=== PATIENT | male | born 1970 | race Caucasian/White ===

== ENCOUNTER 2018-01-31 19:30 | Emergency (ER) | payer OTHER ==
[~2018-01-31] VITALS: Ht 165.1 cm; Wt 88.5 kg
[~2018-01-31 19:30] MED LIST: LEVOTHYROXINE25 MCG PO; LISINOPRIL-HCT1 EACH PO; OMEPRAZOLE40 MG PO; SONATA10 MG PO; TYLENOL # 31 EA PO; TYLENOL WITH C1 EACH PO; WELLBUTRIN XL300 MG PO
[2018-01-31] MEDS ORDERED: SODIUM CHLORIDE 0.9% 1000ML 1,000 ML IV STA (20:20)
[2018-01-31] MEDS ORDERED: ONDANSETRON HCL INJ 2 MG/ML VIAL IV ONE (20:30)
[2018-01-31 20:40] LABS: BASOPHILS # (AUTO) 0.1 (0.0-0.1); BASOPHILS % 0.4 % (0.0-1.0); EOSINOPHILS # (AUTO) 0.1 (0.0-0.4); EOSINOPHILS % 0.4 % (0.0-6.0); HEMATOCRIT 48.1 % (38.2-49.6); HEMOGLOBIN 16.5 g/dL (14.0-18.0); LYMPHOCYTES # (AUTO) 1.2 (1.0-3.2); LYMPHOCYTES % 7.6 % (18.0-39.1); MEAN CORPUSCULAR HGB CONC 34.3 g/dL (31-35); MEAN CORPUSCULAR VOLUME 93.4 fL (81-99); MONOCYTES # (AUTO) 0.9 (0.2-0.8); MONOCYTES % 5.5 % (4.4-11.3); NEUTROPHILS # (AUTO) 13.4 (2.1-6.9); NEUTROPHILS % 85.4 % (38.7-80.0); PLATELET COUNT 317 x10e3/uL (140-360); RED BLOOD COUNT 5.15 x10e6/uL (4.3-5.7)
[2018-01-31] MEDS ORDERED: FAMOTIDINE 20 MG/2 ML VIAL IV ONE (20:45)
[2018-01-31 21:01] LABS: ALANINE AMINOTRANSFERASE 137 IU/L (0-55); ALBUMIN 4.7 g/dL (3.5-5.0); ALBUMIN/GLOBULIN RATIO 1.4 (0.8-2.0); ALKALINE PHOSPHATASE 88 IU/L (40-150); AMYLASE 83 U/L (25-125); ANION GAP 15.1 mmol/L (8-16); BLOOD UREA NITROGEN 12 mg/dL (7-26); BUN/CREATININE RATIO 14 (6-25); CALCIUM 10.7 mg/dL (8.4-10.2); CARBON DIOXIDE 26 mmol/L (22-29); CHLORIDE 100 mmol/L (98-107); CREATININE, SERUM 0.85 mg/dL (0.72-1.25); EST GLOMERULAR FILTRATION RATE > 60 ML/MIN (60-); GLUCOSE 108 mg/dL (74-118); LIPASE 35 U/L (8-78); MAGNESIUM 2.1 MG/DL (1.3-2.1); POTASSIUM 4.1 mmol/L (3.5-5.1); SODIUM 137 mmol/L (136-145)
[2018-01-31] MEDS ORDERED: IOPAMIDOL 370 MG/ML 200 ML INFUS..BTL INJ ONE (21:05)
[2018-01-31] MEDS ORDERED: SODIUM CHLORIDE 0.9% 50ML 50 ML ONE (21:05)
[2018-01-31 21:12] LABS: CLARITY,URINE CLEAR (CLEAR); COLOR,URINE YELLOW (YELLOW)
[2018-01-31 21:13] LABS: BILIRUBIN,URINE NEGATIVE (NEGATIVE); KETONES,URINE NEGATIVE (NEGATIVE); LEUKOCYTE ESTERASE ,URINE NEGATIVE (NEGATIVE); NITRITE,URINE NEGATIVE (NEGATIVE); PROTEIN,URINE DIPSTICK NEGATIVE (NEGATIVE); URINE UROBILINOGEN 0.2 mg/dL (0.2 - 1)
[2018-01-31 21:35] LABS: RBC,URINE 0-5 /HPF (0-5); WBC,URINE (MAN) 0-5 /HPF (0-5)
--- NOTE | 2018-01-31 22:46 | Diagnostic Imaging Report ---
EXAM: CT ABDOMEN/PELVIS W DATE: 01/31/2018 8:23 PM INDICATION: \S\look for cholecystitis, pancreatitis, hernia \S\Y COMPARISON: None TECHNIQUE: The abdomen and pelvis were scanned using a multidetector helical scanner. Coronal and sagittal reformations were obtained. CT low dose techniques were utilized, as applicable. Note that technical issues resulted in a delay in interpretation. IV Contrast: 100 ml Isovue 300/370 FINDINGS: LOWER THORAX: No consolidations LIVER/BILIARY: Scattered subcentimeter too small to characterize liver hypodensities, though likely benign. No ductal dilatation. GALLBLADDER: Unremarkable SPLEEN: Unremarkable PANCREAS: Unremarkable ADRENALS: No nodules KIDNEYS: Several too small to characterize renal hypodensities. No hydronephrosis. GI TRACT: No wall thickening or evidence of obstruction. Diverticulosis. Appendix is not seen. VESSELS: Unremarkable PERITONEUM/RETROPERITONEUM: No free air or fluid LYMPH NODES: No lymphadenopathy REPRODUCTIVE ORGANS/BLADDER: Unremarkable SOFT TISSUES: Unremarkable BONES: Likely posttraumatic change of the right iliac wing. IMPRESSION: No acute abnormality in the abdomen or pelvis. Diverticulosis without diverticulitis. Signed by: Dr Simona Griffin MD on 01/31/2018 10:42 PM
--- NOTE | 2018-01-31 22:48 | Diagnostic Imaging Report ---
EXAM: US GALLBLADDER DATE: 01/31/2018 8:20 PM INDICATION: Abdominal pain, COMPARISON: None TECHNIQUE: Transverse and longitudinal mott scale and color doppler sonographic images of the upper abdomen were obtained. FINDINGS: LIVER 13.7 cm in the right midclavicular line. Slightly increased echogenicity, normal contour, no masses. GALLBLADDER Mild sludge without wall-thickening or pericholecystic fluid. Negative sonographic Jean Baptiste's sign. BILE DUCTS No intra nor extra-hepatic biliary dilation. Common bile duct measures 0.4 cm PANCREAS: Not well-visualized RIGHT KIDNEY: 10.5 cm Echogenicity: Normal Collecting System: No hydronephrosis Stones: None Cyst/Mass: None VESSELS: Aorta: Not well-visualized due to overlying bowel gas Inferior Vena Cava: Not well-visualized due to overlying bowel gas Main Portal Vein: hepatopetal flow. FREE FLUID: None IMPRESSION: 1. Gallbladder sludge without evidence of acute cholecystitis. 2. Possible hepatic steatosis. Signed by: Dr Simona Griffin MD on 01/31/2018 10:44 PM
[2018-01-31 23:27] VITALS: BP 132/69
== END 2018-01-31 23:43 | disposition home or self-care (01) ==
LOC: ER 19:30
DX: R10.11 Right upper quadrant pain (principal); R11.0 Nausea; K29.00 Acute gastritis without bleeding; K80.50 Calculus of bile duct without cholangitis or cholecystitis without obstruction
CPT/HCPCS: 36415; 74177; 76705; 80053; 81001; 82150; 83690; 83735; 85025; 99284; J2405; J7030; Q9967

== ENCOUNTER → 2018-03-07 | Day surgery (SDC) | payer OTHER ==
[2018-02-28 14:15] LABS: BASOPHILS # (AUTO) 0.1 (0.0-0.1); BASOPHILS % 0.9 % (0.0-1.0); EOSINOPHILS # (AUTO) 0.3 (0.0-0.4); EOSINOPHILS % 2.6 % (0.0-6.0); HEMATOCRIT 46.1 % (38.2-49.6); HEMOGLOBIN 15.9 g/dL (14.0-18.0); LYMPHOCYTES # (AUTO) 1.8 (1.0-3.2); LYMPHOCYTES % 18.5 % (18.0-39.1); MEAN CORPUSCULAR HEMOGLOBIN 32.6 pg (28-32); MEAN CORPUSCULAR HGB CONC 34.5 g/dL (31-35); MEAN CORPUSCULAR VOLUME 94.5 fL (81-99); MONOCYTES # (AUTO) 1.1 (0.2-0.8); MONOCYTES % 11.2 % (4.4-11.3); NEUTROPHILS # (AUTO) 6.5 (2.1-6.9); NEUTROPHILS % 66.2 % (38.7-80.0); PLATELET COUNT 293 x10e3/uL (140-360); RED BLOOD COUNT 4.88 x10e6/uL (4.3-5.7); RED CELL DISTRIBUTION WIDTH 12.2 % (11.7-14.4)
[2018-02-28 14:16] LABS: CLARITY,URINE CLEAR (CLEAR); COLOR,URINE YELLOW (YELLOW)
[2018-02-28 14:17] LABS: BILIRUBIN,URINE NEGATIVE (NEGATIVE); KETONES,URINE NEGATIVE (NEGATIVE); LEUKOCYTE ESTERASE ,URINE NEGATIVE (NEGATIVE); NITRITE,URINE NEGATIVE (NEGATIVE); PROTEIN,URINE DIPSTICK NEGATIVE (NEGATIVE); URINE UROBILINOGEN 0.2 mg/dL (0.2 - 1)
[2018-02-28 14:32] LABS: ANION GAP 13.1 mmol/L (8-16); BLOOD UREA NITROGEN 24 mg/dL (7-26); BUN/CREATININE RATIO 27 (6-25); CARBON DIOXIDE 22 mmol/L (22-29); CHLORIDE 104 mmol/L (98-107); EST GLOMERULAR FILTRATION RATE > 60 ML/MIN (60-); GLUCOSE 99 mg/dL (74-118); POTASSIUM 4.1 mmol/L (3.5-5.1); SODIUM 135 mmol/L (136-145)
[~2018-03-07] MED LIST changes: +ACETAMINOPHEN 1000 MG/100 ML IV ONE; +ADVIL200 MG; +BUPIVACAINE 0.25%/EPI 30ML SDV INJ ONE; +DEXAMETHASONE SOD PHOS INJ 4 MG/ML VIAL ONE; +FENTANYL CITRATE/PF 100MCG/2 ML INJ ONE; +GLYCOPYRROLATE INJ 1MG/ 5 ML SYR ONE; +HYDROCODONE/APAP 7.5MG-325MG 1 EA TAB ONE; +HYDROMORPHONE 2MG/ML 2 MG/ML ML ONE; +LIDOCAINE HCL 2% LOCAL INJ 5 ML SDV VIAL INJ ONE; +METOCLOPRAMIDE HCL 10 MG/2ML VIAL ONE; +MIDAZOLAM HCL 2 MG/2 ML VIAL ONE; +NASAL SPRAY30 M1; +NEOSTIGMINE 5 MG/5ML SYR ONE; +ONDANSETRON HCL INJ 2 MG/ML VIAL ONE; +PROPOFOL IV EMULSION 10 MG/ML 20 ML VIAL ONE; +ROCURONIUM BROMIDE 10 MG/ML 5ML VIAL ONE; +SEVOFLURANE INHAL SOLN 250 ML PEN BTL ONE; +VOLTAREN-XR100 MG
--- NOTE | 2018-03-07 08:31 | Diagnostic Imaging Report ---
PROCEDURE: Frontal and lateral views of the chest. COMPARISON: None. INDICATIONS: PRE OPERATIVE CHEST X-RAY FOR LAP JOHN FINDINGS: Lines/tubes: None. Lungs: The lungs are well inflated and clear. There is no evidence of pneumonia or pulmonary edema. Pleura: There is no pleural effusion or pneumothorax. Heart and mediastinum: The cardiomediastinal silhouette is unremarkable. Bones: No acute bony abnormality. IMPRESSION: No acute radiographic abnormality. Dictated by: CONNOR MEDEIROS M.D. on 03/07/2018 at 8:39 Electronically approved by: CONNOR MEDEIROS M.D. on 03/07/2018 at 8:39
[2018-03-07 12:45] VITALS: BP 141/87
--- NOTE | 2018-03-07 13:24 | Operative Report ---
DATE OF PROCEDURE: March 07, 2018 PREOPERATIVE DIAGNOSIS: Cholecystitis. POSTOPERATIVE DIAGNOSIS: Cholecystitis. OPERATION PERFORMED: Laparoscopic cholecystectomy. PEDIATRIC SPEECH THERAPIST: SAMIRA Diaz ANESTHESIA: General. COMPLICATIONS: None. ESTIMATED BLOOD LOSS: Minimal. DESCRIPTION OF PROCEDURE: With the patient lying in bed in the supine position, under good general endotracheal anesthesia, the abdomen was prepped with Betadine solution and draped in the usual manner. A Veress needle was introduced into the umbilicus, and pneumoperitoneum was established without any difficulty. An 11-mm trocar was placed into the umbilicus, and a 10-mm video laparoscope was placed into the intraabdominal cavity. Under direct vision, three 5-mm trocars were placed in the right subcostal region. Video laparoscopy at this point revealed a gallbladder that had some changes consistent with cholesterolosis. The rest of the abdominal exploration was otherwise within normal limits. The peritoneum overlying the neck of the gallbladder was then opened, and the cystic duct was identified. Cystic duct was followed to its junction with the common duct. Cystic duct was then circumferentially dissected away from common duct, doubly clipped and divided. The cystic artery was similarly doubly clipped and divided. The gallbladder was then slowly and carefully taken off the liver bed using the cautery scissors, and perfect hemostasis was ascertained. The gallbladder was grasped through the umbilical port and removed without any difficulty. Video laparoscopy was then again carried out. Liver bed was found to perfectly dry. All of the excess fluid was aspirated. The pneumoperitoneum was evacuated, and all the trocars were removed under direct vision. The midline fascia at the umbilicus was then closed with a lcxude-dw-alyqg of #0 Vicryl. All layers were infiltrated on the way out with solution of 1/4 percent Marcaine. Subcutaneous tissue was approximated with 3-0 Vicryl, and the skin was closed with subcuticular 5-0 Vicryl. Benzoin, Steri-Strips and Band-Aids were applied. The sponge, lap and needle count was correct. Patient tolerated the procedure well and returned to the recovery room in stable condition. Job#: [id number]
--- OUTSIDE RECORDS SUMMARY | 2018-03-11 13:16 | XMS REPORT | Summary of Care ---
Author Author [facility] Organization [facility] Address Unknown Phone Unavailable Encounter ROBERT Aguilar(HERNAN) [id number] Date(s): 04/06/16 - 04/06/16 [facility] [address] [place] [address]- Discharge Disposition: Home or Self Care Attending Physician: Linh Maldonado MD Referring Physician: Linh Maldonado MD Vital Signs Most recent to 1 2 oldest [Reference Range]: Height 165.1 cm 165.1 cm (04/06/16 11:08 AM) (04/04/16 1:53 PM) Temperature Oral 98.0 DegF [96.4-99.1 DegF] (04/06/16 11:08 AM) Blood Pressure 127/78 mmHg 122/81 mmHg [90-140/60-90 mmHg] (04/06/16 3:30 PM) (04/06/16 11:08 AM) Peripheral Pulse 58 bpm Rate [60-100 bpm] *LOW* (04/06/16 11:08 AM) Weight 88.636 kg 86.364 kg (04/06/16 11:08 AM) (04/04/16 1:53 PM) Body Mass Index 32.52 m2 31.68 m2 (04/06/16 11:08 AM) (04/04/16 1:53 PM) Problem List Condition Effective Dates Status Health Status Informant Benign Active hypertension(Confirm ed) Acid Active reflux(Confirmed) Hypothyroid(Confirme Active d) Allergies, Adverse Reactions, Alerts Substance Reaction Severity Status Flexeril Active Medications Advil 200 mg oral tablet 400 mg=2 tab, PO, Q4H, PRN Pain, # 120 tab, 0 Refill(s) Start Date: 04/04/16 Stop Date: 04/14/16 Status: Ordered hydrochlorothiazide-lisinopril 12.5 mg-20 mg oral tablet 1 tab, PO, Daily, # 30 tab, 0 Refill(s) Start Date: 04/04/16 Status: Ordered levothyroxine 50 mcg (0.05 mg) oral tablet 50 microgram=1 tab, PO, Daily, # 30 tab, 0 Refill(s) Start Date: 04/04/16 Status: Ordered omeprazole 40 mg oral delayed release capsule 40 mg=1 cap, PO, Daily, # 30 cap, 0 Refill(s) Start Date: 04/04/16 Status: Ordered Sonata 10 mg oral capsule 10 mg=1 cap, PO, Bedtime, PRN for sleep, # 30 cap, 0 Refill(s) Start Date: 04/04/16 Stop Date: 05/04/16 Status: Ordered Unknown Home Medication 1 tab, PO, PRN, Refill(s) 0 Start Date: 04/04/16 Status: Ordered Vitamin D3 oral tablet 6 tabs, PO, Daily, # 30 tab, 0 Refill(s) Start Date: 04/04/16 Status: Ordered Wellbutrin XL 300 mg/24 hours oral tablet, extended release 300 mg=1 tab, PO, Daily, # 30 tab, 0 Refill(s) Start Date: 04/04/16 Status: Ordered Results CHEM PANEL Most recent to 1 oldest [Reference Range]: eGFR 103 mL/min/1.73m2 1 *NA* (04/06/16 2:59 PM) POC Creatinine 0.9 mg/dL [0.5-1.4 mg/dL] (04/06/16 2:59 PM) 1Result Comment: The eGFR is calculated using the CKD-EPI formula. In most young, healthy individuals the eGFR will be >90 mL/min/1.73m2. The eGFR declines with age. An eGFR of 60-89 may be normal in some populations, particularly the elderly, for whom the CKD-EPI formula has not been extensively validated. Use of the eGFR is not recommended in the following populations: Individuals with unstable creatinine concentrations, including patients and those with serious co-morbid conditions. Patients with extremes in muscle mass or diet. The data above are obtained from the National Kidney Disease Education Program ( NKDEP) which additionally recommends that when the eGFR is used in patients with extremes of body mass index for purposes of drug dosing, the eGFR should be mul tiplied by the estimated BMI. Immunizations No data available for this section Procedures Procedure Date Related Diagnosis Body Site Colonoscopy Esophagoduodenostomy Knee joint operation Rotator cuff repair Shoulder joint operations Social History Social History Type Response Alcohol Past Smoking Status Former smoker; Type: Cigarettes; Exposure to Tobacco Smoke None; Cigarette Smoking Last 365 Days No; Reg Smoking Cessation Counseling No Assessment and Plan No data available for this section
--- OUTSIDE RECORDS SUMMARY | 2018-03-11 13:16 | XMS REPORT | Summary of Care ---
Author Author [facility] Organization [facility] Address Unknown Phone Unavailable Encounter HQ Encntr_alias(FIN) [id number] Date(s): 08/13/16 - 09/11/16 [facility] Discharge Disposition: Home or Self Care Attending Physician: Cali Brizuela MD Vital Signs No data available for this section Problem List Condition Effective Dates Status Health Status Informant Benign Active hypertension(Confirm ed) Acid Active reflux(Confirmed) Hypothyroid(Confirme Active d) Allergies, Adverse Reactions, Alerts Substance Reaction Severity Status Flexeril Active Medications No data available for this section Results No data available for this section Immunizations No data available for this section [...]
--- OUTSIDE RECORDS SUMMARY | 2018-03-11 13:16 | XMS REPORT | Summary of Care ---
Author Author [facility] Organization [facility] Address Unknown Phone Unavailable Encounter HQ Encntr_alias(FIN) [id number] Date(s): 08/05/15 - 09/03/15 [facility] Discharge Disposition: Home Attending Physician: Cali Brizuela MD Vital Signs No data available for this section Problem List No data available for this section Allergies, Adverse Reactions, Alerts No data available for this section Medications No data available for this section Results No data available for this section Immunizations No data available for this section Procedures No data available for this section Social History No data available for this section Assessment and Plan No data available for this section
--- OUTSIDE RECORDS SUMMARY | 2018-03-11 13:16 | XMS REPORT ---
Author Author [facility] Address Unknown Phone Unavailable Care Team Providers Care Clean Up Person Name Role Phone Zak BALLESTEROS Unavailable Unavailable Shelli MACK Unavailable Unavailable Problems This patient has no known problems. Allergies, Adverse Reactions, Alerts This patient has no known allergies or adverse reactions. Medications This patient has no known medications. Results Test Description Test Time Test Comments Text Results Atomic Results Result Comments CHEST 2 VIEWS 2018-03-07 08:39:[address] [address] Patient Name: GEORGI RAMIREZ MR #: [id number] : 1970 Age/Sex: 47/M Req #: [id number] Adm Physician: Ordered by: LATOYA BALLESTEROS MD Report #: [id number] Location: OR Room/Bed: Procedure: [id number] DX/CHEST 2 VIEWS Exam Date: 03/07/18 Exam Time: 0800 REPORT STATUS: Signed PROCEDURE: Frontal and lateral views of the chest. COMPARISON: None. INDICATIONS: PRE OPERATIVE CHEST X-RAY FOR LAP JOHN FINDINGS: Lines/tubes: None. Lungs: The lungs are well inflated and clear. There is no evidence of pneumonia or pulmonary edema. Pleura: There is no pleural effusion or pneumothorax. Heart and mediastinum: The cardiomediastinal silhouette is unremarkable. Bones: No acute bony abnormality. IMPRESSION: No acute radiographic abnormality. Dictated by: CONNOR MEDEIROS M.D. on 03/07/2018 at 8:39 Electronically approved by: CONNOR MEDEIROS M.D. on 03/07/2018 at 8:39 Dictated By: CONNOR MEDEIROS MD 8 Transcribed By: KARINA on 03/07/18838 COPY TO: LATOYA BALLESTEROS MD US GALLBLADDER 2018-01-31 22:42:00 [place] [address] Patient Name: GEORGI RAMIREZ MR #: [id number] : 1970 Age/Sex: 47/M Req #: [id number] Adm Physician: Ordered by: VEGA MACK MD Report #: [id number] Location: ER Room/Bed: Procedure: [id number] US/US GALLBLADDER Exam Date: Exam Time: REPORT STATUS: Signed EXAM: US GALLBLADDER DATE: 01/31/2018 8:20 PM INDICATION: Abdominal pain, COMPARISON: None TECHNIQUE: Transverse and longitudinal mott scale and color doppler sonographic images of the upper abdomen were obtained. FINDINGS: LIVER 13.7 cm in the right midclavicular line. Slightly increased echogenicity, normal contour, no masses. GALLBLADDER Mild sludge without wall-thickening or pericholecystic fluid. Negative sonographic Jean Baptiste's sign. BILE DUCTS No intra nor extra-hepatic biliary dilation. Common bile duct measures 0.4 cm PANCREAS: Not well-visualized RIGHT KIDNEY: 10.5 cm Echogenicity: Normal Collecting System: No hydronephrosis Stones: None Cyst/Mass: None VESSELS: Aorta: Not well-visualized due to overlying bowel gas Inferior Vena Cava: Not well-visualized due to overlying bowel gas Main Portal Vein: hepatopetal flow. FREE FLUID: None IMPRESSION: 1. Gallbladder sludge without evidence of acute cholecystitis. 2. Possible hepatic steatosis. Signed by: Dr Evan Griffin MD on 01/31/2018 10:44 PM Dictated By: EVAN GRIFFIN MD 43 Transcribed By: POLI on 01/31/182243 COPY TO: VEGA MACK MD CT ABDOMEN/PELVIS W 2018-01-31 22:02:00 [place] [address] Patient Name: GEORGI RAMIREZ MR #: [id number] : 1970 Age/Sex: 47/M Req #: [id number] Adm Physician: Ordered by: VEGA MACK MD Report #: [id number] Location: ER Room/Bed: Procedure: [id number] CT/CT ABDOMEN/PELVIS W Exam Date: 01/31/18 Exam Time: 2133 REPORT STATUS: Signed EXAM: CT ABDOMEN/PELVIS W DATE: 01/31/2018 8:23 PM INDICATION: S look for cholecystitis, pancreatitis, hernia S Y COMPARISON: None TECHNIQUE: The abdomen and pelvis were scanned using a multidetector helical scanner. Coronal and sagittal reformations were obtained. CT low dose techniques were utilized, as applicable. Note that technical issues resulted in a delay in interpretation. IV Contrast: 100 ml Isovue 300/370 FINDINGS: LOWER THORAX: No consolidations LIVER/BILIARY: Scattered subcentimeter too small to characterize liver hypodensities, though likely benign. No ductal dilatation. GALLBLADDER: Unremarkable SPLEEN: Unremarkable PANCREAS: Unremarkable ADRENALS: No nodules KIDNEYS: Several too small to characterize renal hypodensities. No hydronephrosis. GI TRACT: No wall thickening or evidence of obstruction. Diverticulosis. Appendix is not seen. VESSELS: Unremarkable PERITONEUM/RETROPERITONEUM: No free air or fluid LYMPH NODES: No lymphadenopathy REPRODUCTIVE ORGANS/BLADDER: Unremarkable SOFT TISSUES: Unremarkable BONES: Likely posttraumatic change of the right iliac wing. IMPRESSION: No acute abnormality in the abdomen or pelvis. Diverticulosis without diverticulitis. Signed by: Dr Evan Griffin MD on 01/31/2018 10:42 PM Dictated By: EVAN GRIFFIN MD 41 Transcribed By: POLI on 01/31/182241 COPY TO: VGEA MACK MD
--- OUTSIDE RECORDS SUMMARY | 2018-03-11 13:16 | XMS REPORT | Continuity of Care Document ---
Author Author [facility] Address Unknown Phone Unavailable Problems Problem Status Onset Date Classification Date Reported Comments Source S63.90XD [facility] UNSPECIFIED DISTURBANCES OF SMELL Active 03/21/2016 [facility] 721.1 - CERV SPONDYL W Active 07/23/2014 [facility] [place] Benign hypertension Active Problem 09/14/2016 [facility] Acid reflux Active Problem 09/14/2016 [facility] Hypothyroid Active Problem 09/14/2016 [facility] S46.011S Active [facility] S46.011 Active [facility] SHOULDER Active [facility] RT WRIST Active [facility] Medications Medication Details Route Status Patient Instructions Ordering Provider Order Date Source zaleplon 10 MG Oral Capsule [Sonata] 10 mg=1 cap, PO, Bedtime, PRN for sleep, # 30 cap, 0 Refill(s) Active 04/04/2016 [facility] Unknown Home Medication 1 tab, PO, PRN, Refill(s) 0 Active 04/04/2016 [facility] Hydrochlorothiazide 12.5 MG / Lisinopril 20 MG Oral Tablet 1 tab, PO, Daily, # 30 tab, 0 Refill(s) Active 04/04/2016 [facility] levothyroxine 50 mcg (0.05 mg) oral tablet 50 microgram=1 tab, PO, Daily, # 30 tab, 0 Refill(s) Active 04/04/2016 [facility] 24 HR Bupropion Hydrochloride 300 MG Extended Release Tablet [Wellbutrin] 300 mg=1 tab, PO, Daily, # 30 tab, 0 Refill(s) Active 04/04/2016 [facility] Ibuprofen 200 MG Oral Tablet [Advil] 400 mg=2 tab, PO, Q4H, PRN Pain, # 120 tab, 0 Refill(s) Active 04/04/2016 [facility] Vitamin D3 oral tablet 6 tabs, PO, Daily, # 30 tab, 0 Refill(s) Active 04/04/2016 [facility] omeprazole 40 mg oral delayed release capsule 40 mg=1 cap, PO, Daily, # 30 cap, 0 Refill(s) Active 04/04/2016 [facility] Allergies, Adverse Reactions, Alerts Substance Category Reaction Severity Reaction type Status Date Reported Comments Source Flexeril Assertion Drug allergy Active [facility] Immunizations Immunization Date Given Site Status Last Updated Comments Source Results Order Name Results Value Reference Range Date Interpretation Comments Source CHEM PANEL eGFR 103 mL/min/1.73m2 04/06/2016 Result Comment: The eGFR is calculated using the [...] from the National Kidney Disease Education Program (NKDEP) which additionally recommends that when the eGFR is used in patients with extremes of body mass index for purposes of drug dosing, the eGFR should be multiplied by the estimated BMI. [facility] CHEM PANEL POC Creatinine 0.9 mg/dL 0.5 - 1.4 04/06/2016 [facility] Brain/IAC's w/wo contrast MRI Brain/IAC's w/wo contrast MRI MRI BRAIN/IACs WITH AND WITHOUT CONTRAST INDICATION: Left sensorineural hearing loss COMPARISON: None DISCUSSION: BRAIN: The white matter is normal in signal. The normal flow voids of the bilateral internal carotid arteries and vertebrobasilar arteries are visible. There is no evidence of acute vascular insults, space occupying lesions, hemorrhage, hydrocephalus, midline shift, or extra-axial fluid collections. No cortical- based, suprasellar, craniocervical, enhancing, or bone abnormalities are seen. IACs: No abnormalities are seen in the internal auditory canals, cerebellopontine angle cisterns, or in the brainstem. The labyrinthine structures are unremarkable. The bilateral mastoids are clear. IMPRESSION: 1. No intracranial abnormalities are visualized. 2. No abnormalities of the bilateral ICAs, labyrinthine structures, or mastoids are identified. SL:16 04/06/2016 - - Read by: Boby Barajas MD Dictated Date/time: 04/09/16 09:00 Electronically Signed by: Boby Barajas MD 04/09/16 09:11 FINAL REPORT [facility] Vital Signs Vital Sign Value Date Comments Source Systolic (mm Hg) 127 04/06/2016 [facility] Diastolic (mm Hg) 78 04/06/2016 [facility] BMI Calculated 32.52 04/06/2016 [facility] Weight 88.636 04/06/2016 [facility] Height 165.1 cm 04/06/2016 [facility] Systolic (mm Hg) 122 04/06/2016 [facility] Diastolic (mm Hg) 81 04/06/2016 [facility] Heart Rate 58 04/06/2016 [facility] Temperature Oral (F) 98.0 F 04/06/2016 [facility] Weight 86.364 04/04/2016 [facility] BMI Calculated 31.68 04/04/2016 [facility] Height 165.1 cm 04/04/2016 [facility] Encounters Location Location Details Encounter Type Encounter Number Reason For Visit Attending Provider ADM Date DC Date Status Source [facility] [place] [facility] [id number] Ailyn Saturday09/27/2014 09/28/2014 [facility] [place] [facility] [id number] Cali Brizuela 06/01/2015 07/01/2015 [facility] [id number] Cali Brizuela 07/04/2015 08/03/2015 [facility] [facility] [facility] [id number] Cali Brizuela 08/05/2015 09/04/2015 [facility] [place] [facility] [facility] [id number] Cali Brizuela 09/07/2015 10/07/2015 [facility] [facility] Outpatient [id number] Linh Joel 04/06/2016 04/07/2016 [facility] [facility] [id number] Clai Brizuela 07/12/2016 08/11/2016 [facility] [id number] Cali Brizuela 08/13/2016 09/12/2016 [facility] Procedures Procedure Code Date Perfomer Comments Source [facility] [id number] [facility] [id number] [facility] Knee [facility] operation [id number] [facility] Rotator cuff repair [id number] [facility] Shoulder joint operations [id number] [facility] Colon[facility] 78424995 [facility] Esophagoduodenostomy 41296993 [facility] Knee joint operation [id number] [facility] Rotator cuff repair [id number] [facility] Shoulder joint operations [id number] [facility]
--- OUTSIDE RECORDS SUMMARY | 2018-03-11 13:16 | XMS REPORT | Summary of Care ---
Author Author [facility] Organization [facility] Address Unknown Phone Unavailable Encounter HQ Encntr_alias(FIN) [id number] Date(s): 07/04/15 - 08/02/15 [facility] Discharge Disposition: Home Attending Physician: Cali Brizuela [...]
--- OUTSIDE RECORDS SUMMARY | 2018-03-11 13:16 | XMS REPORT | Summary of Care ---
Author Author [facility] Organization [facility] Address Unknown Phone Unavailable Encounter HQ Encntr_alias(FIN) [id number] Date(s): 06/01/15 - 06/30/[address] [facility] Discharge Disposition: Home Attending Physician: Cali Brizuela [...]
--- OUTSIDE RECORDS SUMMARY | 2018-03-11 13:16 | XMS REPORT | Summary of Care ---
Author Author [facility] Organization [facility] Address Unknown Phone Unavailable Encounter HQ Encntr_alias(FIN) [id number] Date(s): 09/07/15 - 10/06/15 [facility] Discharge Disposition: Home Attending Physician: Cali Brizuela [...]
--- OUTSIDE RECORDS SUMMARY | 2018-03-11 13:16 | XMS REPORT | Summary of Care ---
Author Author [facility] Organization [facility] Address Unknown Phone Unavailable Encounter HQ Encntr_alias(FIN) [id number] Date(s): 07/12/16 - 08/10/16 [facility] Discharge Disposition: Home or Self Care Attending [...]
--- OUTSIDE RECORDS SUMMARY | 2018-03-11 13:16 | XMS REPORT | Summary of Care ---
Author Organization Unknown Address Unknown Phone Unavailable Encounter HQ Encntr_catia(FIN) [id number] Date(s): 09/27/14 - 09/27/14 [facility] Outpatient Imaging - [place] [id number] [place] [address] [phone] Discharge Disposition: Home Physician Attending: SaturdayAilyn MD Vital Signs No data available for [...]
== END | disposition home or self-care (01) ==
LOC: OR 06:30
PROVIDERS: ATTEND Surgery
DX: K81.1 Chronic cholecystitis (principal); I10 Essential (primary) hypertension; F41.9 Anxiety disorder, unspecified; F32.9 Major depressive disorder, single episode, unspecified; Z88.8 Allergy status to other drugs, medicaments and biological substances; Z01.810 Encounter for preprocedural cardiovascular examination; Z01.812 Encounter for preprocedural laboratory examination
CPT/HCPCS: 36415; 47562; 71046; 80048; 81003; 85025; 88304; 93005; C1766; J1100; J1170; J2001; J2250; J2405; J2765; J3490